=== PATIENT | male | born 1985 | race Caucasian/White ===

== ENCOUNTER 2017-01-24 17:23 | Emergency (ER) | payer MEDICAID ==
[2017-01-24] MEDS ORDERED: KETOROLAC 15 MG/1 ML SDV IVP/IM ONE (17:44)
[2017-01-24] MEDS ORDERED: HALOPERIDOL LACT 5 MG/ML INJ IVP ONE (17:44)
[2017-01-24] MEDS ORDERED: METOCLOPRAMIDE 10 MG/2 ML VIAL IVP ONE (17:44)
--- NOTE | 2017-01-24 17:44 | EDPHY ---
H & P Stated Complaint: starting around 1300 SAMUELS, aura, N/V Time Seen by Provider: 01/24/17 17:33 HPI/ROS: CHIEF COMPLAINT: "Migraine headache "since 1500 hours today HISTORY OF PRESENT ILLNESS: 31-year-old male with a history of seizure disorder , migraine disorder, been non compliant with his Tegretol for the past 3 days secondary to busy schedule and forgetting to pick it up pharmacy. He experienced a usual migraine 3 days ago which resolved spontaneously. Today at 3:00 p.m. he experienced a non thunderclap headache, gradual onset feels like his usual migraine headache with associated photophobia, nausea, vomiting, or aura. No recent head injury. No seizure. He has recently picked up his Tegretol and start taking that again. No fever no chills. No flu-like symptoms. No nuchal rigidity. No recent illness. PRIMARY CARE PROVIDER: primary neurologist Dr. Sergo Allen REVIEW OF SYSTEMS: A ten point review of systems was performed and is negative with the exception of the items mentioned in the HPI PAST MEDICAL & SURGICAL HISTORY: Seizure disorder. Migraine headache. SOCIAL HISTORY: Student PHYSICAL EXAM (Prior to examination, patient consented to physical exam, hands were washed and my usual and customary physical exam procedures followed) 1) GENERAL: Well-developed, well-nourished, alert and oriented. Appears uncomfortable sitting in a darkened room, averse to light 2) HEAD: Normocephalic, atraumatic 3) HEENT: Pupils equal, round, reactive to light bilaterally. Sclera anicteric. Nasopharynx, oropharynx, clear, no lesions. Ears bilaterally with normal tympanic membranes. 4) NECK: Full range of motion, no meningeal signs. 5) LUNGS: Clear auscultation bilaterally, no wheezes, no rhonchi, no retractions. 6) HEART: Regular rate and rhythm, no murmur, no heave, no gallop. 7) ABDOMEN: No guarding, no rebound, no focal tenderness, 8) MUSCULOSKELETAL: Moving all extremities, no focal areas of tenderness, no obvious trauma. No peripheral edema or discoloration. 9) BACK: No CVA tenderness, no midline vertebral tenderness, no fluctuance, no step-off, no obvious trauma, no visual or palpable abnormality. 10) SKIN: No rash, no petechiae. 11) Psychiatric: Patient is oriented X 3, there is no agitation. 12) NEURO: Awake, alert, and oriented to person, place and time. Answers questions appropriately. There were no obvious focal neurologic abnormalities. No cerebellar dysfunction. Normal steady gait. Upper and lower extremities bilaterally with strength 5 / 5, reflexes 2+. DIFFERENTIAL DIAGNOSIS: In no particular order, including but not limited to subarachnoid hemorrhage, migraine headache, tension headache and infectious causes such as meningitis, pharyngitis and sinusitis. The patient understands that this diagnosis is provisional and can never be 100% accurate. Usual and customary warnings were given concerning the clinical impression and all the patient's questions were answered. The patient was instructed to return to the emergency department should her symptoms worsen or return, or develop any new symptoms, otherwise to followup as directed in discharge instructions. This is a partial list of diagnoses considered. These considerations are based on history, physical exam, past history and reassessment. - Personal History Current Tetanus/Diphtheria Vaccine: Yes Current Tetanus Diphtheria and Acellular Pertussis (TDAP): Yes Tetanus Vaccine Date: < 10 years - Medical/Surgical History Hx Asthma: No Hx Chronic Respiratory Disease: No Hx Diabetes: No Hx Cardiac Disease: No Hx Renal Disease: No Hx Cirrhosis: No Hx Alcoholism: No Hx HIV/AIDS: No Hx Splenectomy or Spleen Trauma: No Other PMH: siezured. migraines - Social History Smoking Status: Never smoked Constitutional: Initial Vital Signs Temperature (C) 36.8 C 01/24/17 17:26 Heart Rate 51 L 01/24/17 17:26 Respiratory Rate 22 H 01/24/17 17:26 Blood Pressure 109/70 01/24/17 17:26 O2 Sat (%) 100 01/24/17 17:26 O2 Delivery Mode Room Air Allergies/Adverse Reactions: Penicillins Allergy (Unknown, Verified 01/24/17 17:25) Home Medications: Medication Instructions Recorded carBAMazepine [Tegretol (RX)] 200 mg PO DAILY #30 tab 07/12/15 Medical Decision Making ED Course/Re-evaluation: 5:44 p.m.: Old medical records reviewed prior. Care of patient under supervision of secondary supervising physician Dr Osborne . Patient requests CBC be obtained as he has previous concerns about white blood cell count levels secondary to chronic Tegretol use. This will be obtained. 6:52 p.m.: Re-evaluation, patient was given dose of Decadron at this time. Re -evaluation at this time he is resting comfortably, states that his pain has abated significantly and he would like to be discharged. Discussed his current CBC with him including normal white blood cell count, platelets slightly low at 147,000, recommend he follow up with his primary care provider regarding this.I think that subarachnoid hemorrhage, intracranial mass, malignancy, less than likely in this patient at this time. I do not think that the benefits of CT imaging, lumbar puncture, outweigh the risks in this patient. - Data Points Laboratory Results: Laboratory Results 01/24/17 17:41 01/24/17 17:41 WBC 8.46 10^3/uL 10^3/uL (3.80-9.50) RBC 5.39 10^6/uL 10^6/uL (4.40-6.38) Hgb 16.4 g/dL g/dL (13.7-17.5) Hct 46.7 % % (40.0-51.0) MCV 86.6 fL fL (81.5-99.8) MCH 30.4 pg pg (27.9-34.1) MCHC 35.1 g/dL g/dL (32.4-36.7) RDW 13.1 % % (11.5-15.2) Plt Count 147 10^3/uL L 10^3/uL (150-400) Medications Given: Discontinued Medications Dexamethasone (Decadron Injection) 10 mg IVP EDNOW ONE Stop: 01/24/17 18:53 Last Admin: 01/24/17 19:00 Dose: 10 mg Haloperidol Lactate (Haldol Injection) 2.5 mg IVP EDNOW ONE Stop: 01/24/17 17:45 Last Admin: 01/24/17 17:52 Dose: 2.5 mg Sodium Chloride (Ns) 1,000 mls @ 0 mls/hr IV ONCE ONE PRN Reason: Wide Open Stop: 01/24/17 17:46 Last Admin: 01/24/17 17:50 Dose: 1,000 mls Ketorolac Tromethamine (Toradol) 15 mg IVP/IM EDNOW ONE Stop: 01/24/17 17:45 Last Admin: 01/24/17 17:51 Dose: 15 mg Lorazepam (Ativan Injection) 1 mg IVP EDNOW ONE Stop: 01/24/17 17:46 Last Admin: 01/24/17 17:52 Dose: 1 mg Metoclopramide HCl (Reglan Injection) 10 mg IVP EDNOW ONE Stop: 01/24/17 17:45 Last Admin: 01/24/17 17:51 Dose: 10 mg Promethazine HCl (Phenergan) 12.5 mg IVP EDNOW ONE Stop: 01/24/17 19:09 Last Admin: 01/24/17 19:13 Dose: 12.5 mg Departure - Departure Disposition: Home, Routine, Self-Care Clinical Impression: Headache Qualifiers: Headache type: unspecified Headache chronicity pattern: acute headache Intractability: not intractable Qualified Code(s): R51 - Headache Condition: Good Instructions: Migraine Headache (ED) Additional Instructions: RETURN TO THE ED IMMEDIATELY IF YOUR HEADACHE WORSENS, IF YOU DEVELOP A FEVER , NECK PAIN OR NECK STIFFNESS, OR IF YOU BECOME CONFUSED OR ABNORMALLY DROWSY. Referrals: Tova Valencia PA [Primary Care Provider] - 2-3 days without fail
[2017-01-24] MEDS ORDERED: LORazepam 2 MG/ML INJ IVP ONE (17:45)
[2017-01-24] MEDS ORDERED: NS 1,000 ML IV ONE (17:45)
[2017-01-24] MEDS ORDERED: NS 50 ML BAG IV ONE (17:47)
[2017-01-24 18:19] LABS: HEMATOCRIT 46.7 % (40.0-51.0); HEMOGLOBIN 16.4 g/dL (13.7-17.5); MEAN CELL HEMOGLOBIN 30.4 pg (27.9-34.1); MEAN CELL HEMOGLOBIN CONCENTR. 35.1 g/dL (32.4-36.7); MEAN CELL VOLUME 86.6 fL (81.5-99.8); RED BLOOD CELL COUNT 5.39 10^6/uL (4.40-6.38); RED CELL DISTRIBUTION WIDTH 13.1 % (11.5-15.2)
[2017-01-24] MEDS ORDERED: DEXAMETHASONE 10 MG/ML VIAL IVP ONE (18:52)
[2017-01-24] MEDS ORDERED: PROMETHAZINE HCL 25 MG/ML INJ IVP ONE (19:08)
[2017-01-24 19:43] VITALS: BP 116/74; PULSE 6; RESP 12; TEMP 98.1; O2SAT 97
== END 2017-01-24 19:43 | disposition home or self-care (01) ==
DX: R51 Headache (principal); R11.10 Vomiting, unspecified
CPT/HCPCS: 96374; J1100; J1885; J2060; J2550; J2765